=== PATIENT | female | born 1935 | race Caucasian/White ===

== ENCOUNTER 2021-10-20 01:48 | Emergency (ER) | payer OTHER, BC ==
[2021-10-20 02:05] VITALS: BP 146/80; PULSE 70; TEMP 97.9; BMI 24.9
[2021-10-20 09:07] LABS: EPITHELIAL CELLS FEW /hpf
== END 2021-10-20 11:07 | disposition home or self-care (01) ==
LOC: FER 01:48
PROC: 0HQ1XZZ Repair Face Skin, External Approach (ICD-10-PCS; principal; 2021-10-20)
DX: S02.2XXA Fracture of nasal bones, initial encounter for closed fracture (principal); S01.81XA Laceration without foreign body of other part of head, initial encounter; W01.0XXA Fall on same level from slipping, tripping and stumbling without subsequent striking against object, initial encounter
CPT/HCPCS: 70450-TC; 81003; 81015; 87086; 87186; 99284-25